=== PATIENT | female | born 1975 | race Caucasian/White ===

== ENCOUNTER 2024-01-14 10:10 | Outpatient (CLI) | payer OTHER, SELFPAY | END 2024-01-14 10:11 | disposition home or self-care (01) | PROVIDERS: Visit Provider Family Medicine | DX: Z00.00 Encounter for general adult medical examination without abnormal findings (principal); F41.9 Anxiety disorder, unspecified; Z11.59 Encounter for screening for other viral diseases; Z13.6 Encounter for screening for cardiovascular disorders; Z13.29 Encounter for screening for other suspected endocrine disorder; Z76.89 Persons encountering health services in other specified circumstances | CPT/HCPCS: 80053; 80061; 84443; 86803 ==

== ENCOUNTER 2024-02-27 09:55 | Outpatient (CLI) | payer OTHER, SELFPAY ==
--- NOTE | 2024-02-27 11:25 | W.ANESCHARGE ---
Anesthesia Charges Start Date/Time Anesthesia Start Date: 02/27/24 Anesthesia Start Time: 10:47 Stop Date/Time Anesthesia Stop Date: 02/27/24 Anesthesia Stop Time: 11:20
== END 2024-02-27 09:56 | disposition home or self-care (01) ==
LOC: OP CLINIC 09:56
PROVIDERS: PCP Family Medicine; Visit Provider Surgery
DX: Z12.11 Encounter for screening for malignant neoplasm of colon (principal)
CPT/HCPCS: 00812; 45378

== ENCOUNTER 2024-03-04 08:25 | Outpatient (CLI) | payer OTHER, SELFPAY ==
--- NOTE | 2024-03-04 08:45 | CRLHL7_ITS ---
For Patients: As a result of the Century Cures Act, medical imaging exams and procedure reports are released immediately into your electronic medical record. You may view this report before your referring provider. If you have questions, please contact your health care provider. BILATERAL SCREENING MAMMOGRAM WITH COMPUTER-AIDED DETECTION AND TOMOSYNTHESIS TECHNIQUE: CC and MLO views were obtained. These mammographic images have been obtained using full-field digital technique. These mammographic images were interpreted with the benefit of computer-aided detection. Breast Tomosynthesis was used in this interpretation. COMPARISON FILM: 01/11/23, 01/29/20, 01/26/19. FINDINGS: The breasts are extremely dense, which lowers the sensitivity of mammography. IMPRESSION: There is no radiographic evidence for malignancy. ASSESSMENT: BI-RADS Category 2: Benign RECOMMENDATION: Routine screening mammogram in 1 year. A lay language report of this examination will be provided to the patient. Jacob Malone M.D. Diagnostic Radiologist [email or web address] SP/Dictated by: Jacob Malone MD @ 03/12/2024 11:18:00 AM (Electronically Signed)
== END 2024-03-04 08:26 | disposition home or self-care (01) ==
LOC: MAMMO 08:25
PROVIDERS: PCP Family Medicine; Visit Provider Family Medicine
DX: Z12.31 Encounter for screening mammogram for malignant neoplasm of breast (principal); R92.333 Mammographic heterogeneous density, bilateral breasts
CPT/HCPCS: 77063; 77067